=== PATIENT | female | born 1940 | race Caucasian/White ===

== ENCOUNTER → 2023-08-30 15:22 | Outpatient (REF) | payer MEDICARE, SELFPAY | LOC: RCS 15:22 | PROVIDERS: ATTENDING PHYSICIAN Internal Medicine Cardiovascular Disease; FAMILY PHYSICIAN Family Medicine | DX: Z95.3 Presence of xenogenic heart valve (principal); I25.10 Atherosclerotic heart disease of native coronary artery without angina pectoris; R06.02 Shortness of breath; Z95.1 Presence of aortocoronary bypass graft; I50.1 Left ventricular failure, unspecified | CPT/HCPCS: 93306 ==

== ENCOUNTER 2023-10-03 14:00 | Emergency (ER) | payer MEDICARE, SELFPAY ==
[2023-10-03 14:09] VITALS: BP 106/75
--- NOTE | 2023-10-03 16:54 | ED.MUSCINJ ---
HPI-Injury
General
Chief Complaint: Fall
Source: patient
Exam Limitations: none
Time Seen by Provider: 10/03/23 16:36
Travel History
Have you had any contact with someone who has COVID-19?: No
Do you have any symptoms of coronavirus? Fever > 100 degrees, chills, cough, shortness of breath, sore throat, loss of taste or smell, muscle aches, or headache?: No
History of Present Illness-Injury
Initial Injury comments:
83-year-old female presents 3 days after a fall. She tripped and landed on her printer. She complains of right side and rib pain. She denies shortness of breath. No cough or hemoptysis. No hematuria. She is not anticoagulated. No other
complaints at this time
Past History
Past History
ED Past Medical History: CAD, HTN, Hypercholesterolemia, Valvular disease and Other (Osteoarthritis, osteoporosis, scoliosis)
ED Past Surgical History: None, Cardiac (Cardiac valve replacement), Orthopedic (Left shoulder joint replacement right shoulder joint replacement, right knee replacement) and Other (Melanoma, hiatal hernia repair)
Social History
Tobacco: Non-smoker
Alcohol: None
Drug: None
Living: with family
Phy Exam
Physical Exam
Physical Exam:
General: Well-appearing female in no acute respiratory distress
HEENT: Normocephalic atraumatic
Heart: Regular rate and rhythm no murmur
Lungs: Clear no wheeze or rales breath sounds heard throughout
Abdomen is soft no swelling nontender. No guarding
Musculoskeletal exam: The right lateral inferior ribs are tender to palpation no step-off or deformity
Extremities: No cyanosis
Injury Course
Orders/Labs/Results
Orders:
Orders
10/03/23 14:10
Ribs, Right 3 View W/PA Chest [CR Ribs-right 3 Vw W/pa Chest*] Urgent
Comment:
Reason For Exam: pain
MDM/Problems Addressed
Differential Diagnosis Includes:
Right lateral rib pain after fall consider rib fracture chest wall contusion versus
I personally visualized x-rays of the right ribs which demonstrate fractures of the eighth ninth and 10th ribs without associated pneumothorax. Patient overall looks comfortable she has been functional for the past several days following her
injury. No indication for admission. Will prescribe pain medications for her.
*Critical Care Note
Total Time (30-74mins, 75-104mins- exclusive of procedures): Not Applicable
ED Attending Note
-
Portions of this chart may have been created with voice recognition software.� Occasional wrong word or��sound alike� substitutions may have occurred due to the inherent limitations of voice recognition software.
Discharge Plan
Departure
Patient Disposition: Home (Routine Discharge)
Date of Disposition: 10/03/23
Time of Disposition: 17:02
Patient with high blood pressure during this ER visit?: No
Discharge Problem:
Fracture of rib
Instructions: Rib Fracture
Prescriptions:
New
oxycodone-acetaminophen [Percocet] 5-325 mg tablet
1 tab PO Q6HPRN PRN (Reason: pain) Qty: 10 0RF
No Action
sertraline 100 MG tablet
150 mg PO DAILY
valsartan 80 MG tablet
80 mg PO DAILY
aspirin 81 MG tablet,delayed release (DR/EC)
81 mg PO QPM
meloxicam 7.5 MG tablet
7.5 mg PO DAILY
calcium carbonate 600 MG tablet
500 mg PO QPM
famotidine 20 MG tablet
20 mg PO HS
oxycodone-acetaminophen [Percocet] 1 EACH tablet
1 ea PO Q6HPRN PRN (Reason: moderate pain)
omeprazole 20 MG capsule,delayed release(DR/EC)
20 mg PO BID
fluocinonide 20 ML solution
6 drops topical BIDPRN PRN (Reason: head rash)
rosuvastatin 10 MG tablet
10 mg PO QPM
cholecalciferol (vitamin D3) 1,000 UNITS tablet
1,000 units PO QPM
multivitamin with folic acid [Tab-A-Valentín] 1 TABLET tablet
1 tab PO QPM
polyvinyl alcohol-povidon(PF) [Refresh Classic (PF)] 10 DROPS dropperette
1 drops BOTH EYES DAILYPRN PRN (Reason: computer use)
NAD, reduced, disodium (bulk) [Nicotinamide Burak.Dinuc.RedNA2] 1 GM powder
500 mg PO DAILY
Fiber 6 Tablet Tab
5,000 mg PO DAILY
Activity Restrictions/Additional Instructions:
Use medicine as needed for severe pain. Please return here for increased shortness of breath or fever. Follow-up with Dr. Mena
Interventions
Interventions:
*Risk Screen - Suicide Last Done: 10/03/23 14:09
*General Assessment Last Done: 10/03/23 14:09
*Neglect/Abuse Screening Last Done: 10/03/23 14:09
ED- Fall Risk Assessment Last Done: 10/03/23 16:15
*ED COVID-19 Vaccine History Last Done: 10/03/23 14:09
*Nursing Disposition Last Done: 10/03/23 17:25
ED-Musculoskeletal Assessment Last Done: 10/03/23 16:27
ED- Neurological Assessment Last Done: 10/03/23 16:27
ED-Skin Assessment Last Done: 10/03/23 16:27
Discharge Date and Time
Discharge Date/Time: 10/03/23 17:26
Print Language: SLOVENIAN
== END 2023-10-03 17:26 | disposition home or self-care (01) ==
LOC: EMR 14:00
PROVIDERS: EMERGENCY PHYSICIAN Student in an Organized Health Care Education/Training Program; FAMILY PHYSICIAN Family Medicine
DX: S22.31XA Fracture of one rib, right side, initial encounter for closed fracture (principal); W01.198A Fall on same level from slipping, tripping and stumbling with subsequent striking against other object, initial encounter; I10 Essential (primary) hypertension; I25.10 Atherosclerotic heart disease of native coronary artery without angina pectoris; E78.00 Pure hypercholesterolemia, unspecified; M19.90 Unspecified osteoarthritis, unspecified site; M81.0 Age-related osteoporosis without current pathological fracture; I38 Endocarditis, valve unspecified; Z96.612 Presence of left artificial shoulder joint; Z96.611 Presence of right artificial shoulder joint; Z96.651 Presence of right artificial knee joint; Z95.2 Presence of prosthetic heart valve; Z85.820 Personal history of malignant melanoma of skin; Z79.82 Long term (current) use of aspirin; Z91.040 Latex allergy status; Z91.048 Other nonmedicinal substance allergy status
CPT/HCPCS: 99283; 71101

== ENCOUNTER 2023-12-22 15:53 | Emergency (ER) | payer MEDICARE, SELFPAY ==
[2023-12-22 16:03] VITALS: BP 105/64
[2023-12-22 16:25] LABS: % Basophils 1.1 % (0-2); % Eosinophils 2.4 % (0-6); % Immature Granulocytes 0.2 % (0-0.5); % Lymphocytes 15.9 % (20.5-51.1); % Monocytes 4.8 % (1.7-9.3); % Neutrophils 75.6 % (42.2-75.2); Absolute Basophils 0.1 10^3/uL (0-0.2); Absolute Eosinophils 0.2 10^3/uL (0-0.7); Absolute Monocytes 0.3 10^3/uL (0.1-0.6); Absolute Neutrophils 4.7 10^3/uL (1.4-6.5); Hematocrit 33.2 % (37.0-47.0); Hemoglobin 10.6 g/dL (12.0-16.0); Mean Corp Hgb Conc. 31.9 g/dL (33.0-37.0); Mean Corpuscular Volume 84.7 fL (81.0-99.0); Mean Platelet Volume 9.4 fL (7.4-10.4); Nucleated Red Blood Cells % 0 %; Platelet Count 229 10^3/uL (130-400); Red Blood Cell Count 3.92 10^6/uL (4.20-5.40); White Blood Cell Count 6.2 10^3/uL (4.8-10.8)
[2023-12-22 16:39] LABS: ALT (SGPT) 13 U/L (0-35); AST (SGOT) 28 U/L (14-36); Alkaline Phosphatase 80 U/L (38-126); Blood Urea Nitrogen 20 mg/dl (7-17); Calcium 8.5 mg/dl (8.4-10.2); Carbon Dioxide 26 mmol/L (22-30); Chloride 106 mmol/L (98-107); Glucose 181 mg/dl (70-99); Potassium 3.1 mmol/L (3.5-5.1); Sodium 144 mmol/L (135-145); Total Bilirubin 0.5 mg/dl (0.2-1.3); Total Protein 7.4 g/dl (6.3-8.2); eGFR 55.55
--- NOTE | 2023-12-22 19:29 | ED.GENMED ---
History of Present Illness
General
Chief Complaint: Skin Problem
Source: patient
Exam Limitations: none
Time Seen by Provider: 12/22/23 18:27
History of Present Illness
History of Present Illness:
This is a 83 year old female that comes in with c/o wound on the right lower jaw. 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 States that a few days ago this area opened up and has opened up several times. States that she has cared for at
[facility] and she called them today. States that she was told to come to the ER for IV antibiotics. States that she was started on Augmentin BID. States that she has an appointment next week on Tuesday with her doctor there. States that
she does have occasional SOB. Denies any fever, chills, chest pain, abd pain, nausea, vomiting, diarrhea, headache, dizziness, urinary burning.
Past History
Past History
ED Past Medical History: CAD, Cancer (Skin Cancer, Christine Cell skin cancer, Melanoma, ), CHF, GERD, HTN, Hypercholesterolemia, Valvular disease, Psychiatric (Anxiety, Depressioin. ) and Other (Osteoarthritis, osteoporosis, scoliosis, Colitis, Hiatal
hernia, )
ED Past Surgical History: None, Cardiac (Cardiac valve replacement Bovine, CABG single), Orthopedic (Left shoulder joint replacement right shoulder joint replacement, right knee replacement, Left second toe amputation), Tonsilectomy (and adenoids)
and Other (Melanoma, hiatal hernia repair, Cataracts, )
Social History
Tobacco: Former smoker
Alcohol: None
Drug: None
Personal:
Living: alone
Review of Systems
Review of Systems
All Other Systems: ROS reviewed and negative except as documented in HPI and ROS
Constitutional: Reports no symptoms; Denies fever or chills
EENT: Reports no symptoms
Respiratory: Reports trouble breathing (occasionl)
Cardiac: Reports no symptoms; Denies chest pain
ABD/GI: Reports no symptoms; Denies abdominal pain, nausea, vomiting or diarrhea
: Reports no symptoms; Denies dysuria, frequency or urgency
Musculoskeletal: Reports no symptoms
Skin: Reports other (right lower jaw wound)
Neurological: Reports no symptoms; Denies dizzy or headache
Psychiatric: Reports no symptoms
Phy Exam
General Physical Exam
General Presentation: well appearing and no apparent distress
General age: appears stated age
General Skin: warm and dry
General Habitus: elderly
General Mental: alert
General Hydration: appears well hydrated
ENT Exam
ENT Exam: TM's normal, pharynx normal, neck supple and other (Negative for any redness of the right lower jaw. Small open area noted behind molar)
Eye Exam
Eye Exam: EOMI
Cardiovascular Exam
Cardiovascular Exam: regular rate/rhythm, no edema, normal peripheral pulses and other (Murmur)
Pulmonary Exam
Pulmonary Exam: lungs clear, no respiratory distress, no rales, chest non tender, no crackles, no rhonchi, no wheezing and no cough
Gastrointestinal Exam
Gastrointestinal Exam: normal bowel sounds, non tender, soft, no organomegaly, no pulsatile mass and non distended
Musculoskeletal Exam
Musculoskeletal Exam: full ROM and no edema
Skin Exam
Skin Exam: normal color, warm/dry, no petechia and other (Quarter size scabbed area noted on the right lower mid jaw line. Negative for any redness or drainage. )
Psychiatric Exam
Psychiatric Exam: normal mood/affect
Course
Orders/Labs/Results
Orders:
Orders
12/22/23 16:15
CMP [Comprehensive Metabolic Panel] Urgent
Complete Blood Count/With Diff Urgent
Abnormal Lab Results
12/22/23
16:15
RBC 3.92 L 10^6/uL
(4.20-5.40)
Hgb 10.6 L g/dL
(12.0-16.0)
Hct 33.2 L %
(37.0-47.0)
MCHC 31.9 L g/dL
(33.0-37.0)
RDW 15.0 H %
(11.5-14.5)
Absolute Lymphs (auto) 1.0 L 10^3/uL
(1.2-3.4)
Neutrophils % 75.6 H %
(42.2-75.2)
Lymphocytes % 15.9 L %
(20.5-51.1)
Potassium 3.1 L mmol/L
(3.5-5.1)
BUN 20 H mg/dl
(7-17)
Glucose 181 H mg/dl
(70-99)
12/22/23 16:15
12/22/23 16:15
H/H slightly low consistent with prior labs, Hypokalemia, Dehydration. Glucose nonfasting.
Vital Signs
Initial and Last Documented VS:
Initial Vital Signs
Temp Pulse Resp BP Pulse Ox
98.5 F 71 18 105/64 97
12/22/23 16:03 12/22/23 16:03 12/22/23 16:03 12/22/23 16:03 12/22/23 16:03
Last Documented Vital Signs
Temp Pulse Resp BP Pulse Ox
98.5 F 72 18 105/64 94
12/22/23 16:03 12/22/23 19:32 12/22/23 19:32 12/22/23 16:03 12/22/23 19:32
MDM/Problems Addressed
Differential Diagnosis Includes:
Osteoradial necrosis of jaw,
MDM/Problems Addressed:
This is a 83 year old female that comes in with c/o wound on the right lower jaw. States that she has Right jaw Osteoradial necrosis. States that a few days ago this opened up and has opened several times. States that she is cared for at [facility] and today when she called she was told to come to the ER for IV antibiotics. Patient had already been started on Augmentin BID this week.
Labs drawn and explained to patient that just getting one dose of IV antibiotics in the ER is not the preferred treatment. Called and spoke with Dr. Putnam at [facility]. She is also in agreement that giving her one dose of antibiotic will not
help. Patient has a normal WBC coung and she is fine letting the patient go home as patient has refused to stay in the hospital as she has dogs at home. Patient states that she has an appointment with her doctor at [facility] on Tuesday next
week. Patient to continue with the antibiotics and return with any concerns.
Chronic conditions affecting care:
Osteoradial necrosis of jaw,
Acute Exacerbation and/or Progression of Chronic Illness:
Osteoradial necrosis of jaw,
*Pulse Oximetry
Patient hypoxic: no
*EKG
Interpreted by ED Provider?: NA
Rate: EKG- N/A
*Senior Pricing Analyst Interpretation
Rate: Senior Pricing Analyst- N/A
*Critical Care Note
Total Time (30-74mins, 75-104mins- exclusive of procedures): Not Applicable
ED Attending Note
-
Portions of this chart may have been created with voice recognition software.� Occasional wrong word or��sound alike� substitutions may have occurred due to the inherent limitations of voice recognition software.
Discharge Plan
Departure
Patient Disposition: Home (Routine Discharge)
Date of Disposition: 12/22/23
Time of Disposition: 19:41
Patient with high blood pressure during this ER visit?: No
Condition: Good
Covid-19: Not Applicable
Discharge Problem:
Right jaw osteoradial necrosis, Scabbed wound
Instructions: Wound Care (DC)
Prescriptions:
No Action
sertraline 100 MG tablet
150 mg PO DAILY
valsartan 80 MG tablet
80 mg PO DAILY
aspirin 81 MG tablet,delayed release (DR/EC)
81 mg PO QPM
meloxicam 7.5 MG tablet
7.5 mg PO DAILY
calcium carbonate 600 MG tablet
500 mg PO QPM
famotidine 20 MG tablet
20 mg PO HS
oxycodone-acetaminophen [Percocet] 1 EACH tablet
1 ea PO Q6HPRN PRN (Reason: moderate pain)
omeprazole 20 MG capsule,delayed release(DR/EC)
20 mg PO BID
fluocinonide 20 ML solution
6 drops topical BIDPRN PRN (Reason: head rash)
rosuvastatin 10 MG tablet
10 mg PO QPM
cholecalciferol (vitamin D3) 1,000 UNITS tablet
1,000 units PO QPM
multivitamin with folic acid [Tab-A-Valentín] 1 TABLET tablet
1 tab PO QPM
polyvinyl alcohol-povidon(PF) [Refresh Classic (PF)] 10 DROPS dropperette
1 drops BOTH EYES DAILYPRN PRN (Reason: computer use)
NAD, reduced, disodium (bulk) [Nicotinamide Burak.Dinuc.RedNA2] 1 GM powder
500 mg PO DAILY
Fiber 6 Tablet Tab
5,000 mg PO DAILY
oxycodone-acetaminophen [Percocet] 5-325 mg tablet
1 tab PO Q6HPRN PRN (Reason: pain) Qty: 10 0RF
Referrals:
Bhumika Desai, DO [Family Provider] - As needed
Activity Restrictions/Additional Instructions:
As discussed your white blood cell count is normal. You have already been started on antibiotics. Please take these as directed. Follow up with your doctor Next week as scheduled. Tylenol for any discomfort. IF YOU HAVE ANY OTHER CONCERNS PLEASE
RETURN TO THE EMERGENCY ROOM.
Interventions
Interventions:
*Risk Screen - Suicide Last Done: 12/22/23 16:03
*General Assessment Last Done: 12/22/23 16:03
*Neglect/Abuse Screening Last Done: 12/22/23 16:03
*Nursing Disposition Last Done: 12/22/23 19:50
ED-Skin Assessment Last Done: 12/22/23 19:32
Discharge Date and Time
Discharge Date/Time: 12/22/23 19:50
Print Language: EAST TIMORESE
== END 2023-12-22 19:50 | disposition home or self-care (01) ==
LOC: EMR 15:53
PROVIDERS: Emergency Medicine; EMERGENCY PHYSICIAN Student in an Organized Health Care Education/Training Program; FAMILY PHYSICIAN Family Medicine
DX: M27.2 Inflammatory conditions of jaws (principal); S01.80XA Unspecified open wound of other part of head, initial encounter; R06.02 Shortness of breath; X58.XXXA Exposure to other specified factors, initial encounter; I11.0 Hypertensive heart disease with heart failure; I50.9 Heart failure, unspecified; I25.10 Atherosclerotic heart disease of native coronary artery without angina pectoris; F41.9 Anxiety disorder, unspecified; K21.9 Gastro-esophageal reflux disease without esophagitis; E78.00 Pure hypercholesterolemia, unspecified; M19.90 Unspecified osteoarthritis, unspecified site; M81.0 Age-related osteoporosis without current pathological fracture; M41.9 Scoliosis, unspecified; K52.9 Noninfective gastroenteritis and colitis, unspecified; Z95.1 Presence of aortocoronary bypass graft; Z95.2 Presence of prosthetic heart valve; Z96.651 Presence of right artificial knee joint; Z85.820 Personal history of malignant melanoma of skin; Z87.891 Personal history of nicotine dependence
CPT/HCPCS: 99283; 80053; 85025

== ENCOUNTER 2024-04-16 14:51 | Emergency (ER) | payer MEDICARE, SELFPAY ==
--- NOTE | 2024-04-16 14:53 | ED.GENMED ---
ED Provider Triage
-
Patient seen by provider in Triage?: Seen in Triage
Attestation: A medical screening examination has been initiated by a qualified medical provider. Based on the assessment performed at this time, it has been determined that an emergent medical condition may exist and the patient has been informed
that further medical evaluation and possible additional diagnostic testing may be needed.
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 Had lymph node/jaw radiation. Postradiation developed 2 fistulas on the
left side on on the right side oncologist sent her here requesting culture of the fistula so she can put her on the right antibiotic
GENERAL: Alert , in no apparent distress
EYE: No visual abnormalities.
NECK: Trachea midline
ENT: No visible abnormalities.
LUNGS: No acute respiratory distress
NEUROLOGICAL: Alert and oriented
SKIN: Skin intact. No visible changes.
MUSCULOSKELETAL: Moving extremities normally
PSYCH: Normal and appropriate interaction.
This is a medical evaluation conducted in person to initiate diagnostic evaluation and provide initial therapeutics. Please see further documentation by the treating clinician.
History of Present Illness
General
Chief Complaint: Wound Check/Suture Removal
Source: patient
Exam Limitations: none
Time Seen by Provider: 04/16/24 16:32
Nursing documentation reviewed up to this point in time: agreed with
History of Present Illness
History of Present Illness:
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 Had lymph node/jaw radiation. Postradiation developed 2 'fistulas' on the
right jaw line. Pt states she had a video call with her ID doctor in [facility] Dr. Taylor 2 days ago and sent her here requesting culture of the 'fistula' so she can put her on the right antibiotic. Pt states the area drained 'some pus' 2 days
ago.
Denies fever or chills
Past History
Past History
ED Past Medical History: CAD, Cancer (Skin Cancer, [place] Cell skin cancer, Melanoma, ), CHF, GERD, HTN, Hypercholesterolemia, Valvular disease, Psychiatric (Anxiety, Depressioin. ) and Other (Osteoarthritis, osteoporosis, scoliosis, Colitis, Hiatal
hernia, )
ED Past Surgical History: None, Cardiac (Cardiac valve replacement Bovine, CABG single), Orthopedic (Left shoulder joint replacement right shoulder joint replacement, right knee replacement, Left second toe amputation), Tonsilectomy (and adenoids)
and Other (Melanoma, hiatal hernia repair, Cataracts, )
Social History
Tobacco: Former smoker
Alcohol: None
Drug: None
Personal:
Living: alone
Review of Systems
Review of Systems
Allergies reviewed?: Yes
All Other Systems: ROS reviewed and negative except as documented in HPI and ROS
Constitutional: Denies fever or chills
Skin: Reports other (sore on right jaw)
Phy Exam
Physical Exam
Physical Exam:
PHYSICAL EXAMINATION:
General: no apparent distress, not acutely ill
Neuro: alert and oriented.
Psychiatric: well kept. interactive and cooperative
Musculoskeletal: Moves with ease
Skin: Warm, pink. There is a 5 mm round scab on right mid jawline. Dry, no drainage, no fluctuance, surrounding skin is normal.
Course
Vital Signs
Initial and Last Documented VS:
Initial Vital Signs
Temp Pulse Resp BP Pulse Ox
98.2 F 77 20 143/97 99
04/16/24 14:56 04/16/24 14:56 04/16/24 14:56 04/16/24 14:56 04/16/24 14:56
Last Documented Vital Signs
Temp Pulse Resp BP Pulse Ox
98.2 F 96 18 156/84 98
04/16/24 17:23 04/16/24 17:23 04/16/24 17:23 04/16/24 17:23 04/16/24 17:23
MDM/Problems Addressed
MDM/Problems Addressed:
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 Had lymph node/jaw radiation. Postradiation developed 2 'fistulas' on the
right jaw line. Pt states she had a video call with her ID doctor in [facility] Dr. Taylor 2 days ago and sent her here requesting culture of the 'fistula' so she can put her on the right antibiotic. Pt states the area drained 'some pus' 2 days
ago.
Denies fever or chills
4:30 PM:
Spoke with infectious disease Dr. Taylor's RN Jeff who agrees that the wound does not need to be cultured since it is dry and scabbed over.
He himself spoke with patient on the phone.
After patient left, ID called, case discussed, she requested names and numbers for our ID doctors, I gave her all Dr. Pires, Brown and Romario. She will call pt tomorrow and suggest she get ID doctor in this area.
*Critical Care Note
Total Time (30-74mins, 75-104mins- exclusive of procedures): Not Applicable
ED Attending Note
-
Portions of this chart may have been created with voice recognition software.� Occasional wrong word or��sound alike� substitutions may have occurred due to the inherent limitations of voice recognition software.
Discharge Plan
Departure
Patient Disposition: Home (Routine Discharge)
Date of Disposition: 04/16/24
Time of Disposition: 16:35
Patient with high blood pressure during this ER visit?: No
Condition: Good
Discharge Problem:
Facial abrasion
Instructions: Wound Care (DC), Stitches and rene
Prescriptions:
No Action
sertraline 100 MG tablet
150 mg PO DAILY
valsartan 80 MG tablet
80 mg PO DAILY
aspirin 81 MG tablet,delayed release (DR/EC)
81 mg PO QPM
meloxicam 7.5 MG tablet
7.5 mg PO DAILY
calcium carbonate 600 MG tablet
500 mg PO QPM
famotidine 20 MG tablet
20 mg PO HS
oxycodone-acetaminophen [Percocet] 1 EACH tablet
1 ea PO Q6HPRN PRN (Reason: moderate pain)
omeprazole 20 MG capsule,delayed release(DR/EC)
20 mg PO BID
fluocinonide 20 ML solution
6 drops topical BIDPRN PRN (Reason: head rash)
rosuvastatin 10 MG tablet
10 mg PO QPM
cholecalciferol (vitamin D3) 1,000 UNITS tablet
1,000 units PO QPM
multivitamin with folic acid [Tab-A-Valentín] 1 TABLET tablet
1 tab PO QPM
polyvinyl alcohol-povidon(PF) [Refresh Classic (PF)] 10 DROPS dropperette
1 drops BOTH EYES DAILYPRN PRN (Reason: computer use)
NAD, reduced, disodium (bulk) [Nicotinamide Burak.Dinuc.RedNA2] 1 GM powder
500 mg PO DAILY
Fiber 6 Tablet Tab
5,000 mg PO DAILY
oxycodone-acetaminophen [Percocet] 5-325 mg tablet
1 tab PO Q6HPRN PRN (Reason: pain) Qty: 10 0RF
Activity Restrictions/Additional Instructions:
As we discussed, the affected area on your face hat opened and drained some pus is now dry and nothing to culture.
There is no abscess, no sign of infection
Nothing to do at this point.
Interventions
Interventions:
*Risk Screen - Suicide Last Done: 04/16/24 16:40
*General Assessment Last Done: 04/16/24 14:56
*Neglect/Abuse Screening Last Done: 04/16/24 16:40
ED- Fall Risk Assessment Last Done: 04/16/24 16:40
*ED COVID-19 Vaccine History Last Done: 04/16/24 16:40
*Nursing Disposition Last Done: 04/16/24 17:23
ED-Skin Assessment Last Done: 04/16/24 16:40
Discharge Date and Time
Discharge Date/Time: 04/16/24 17:20
Print Language: BURUNDIAN
[2024-04-16 14:56] VITALS: BP 143/97
--- NOTE | 2024-04-16 17:20 | EDRN ---
Reviewed discharge instructions with patient. Verbalized understanding. Ambulated with steady gait to the lobby.
[2024-04-16 17:23] VITALS: BP 156/84
== END 2024-04-16 17:20 | disposition home or self-care (01) ==
LOC: EMR 14:51
PROVIDERS: EMERGENCY PHYSICIAN Emergency Medicine; FAMILY PHYSICIAN Family Medicine
DX: S00.81XA Abrasion of other part of head, initial encounter (principal); X58.XXXA Exposure to other specified factors, initial encounter; Z87.891 Personal history of nicotine dependence; Z85.821 Personal history of Merkel cell carcinoma
CPT/HCPCS: 99283

== ENCOUNTER → 2024-05-15 10:38 | Outpatient (REF) | payer MEDICARE, SELFPAY | LOC: RAD 10:38 | PROVIDERS: ATTENDING PHYSICIAN Dermatology; FAMILY PHYSICIAN Family Medicine | DX: D48.5 Neoplasm of uncertain behavior of skin (principal) | CPT/HCPCS: 70110 ==

== ENCOUNTER → 2024-05-16 16:16 | Outpatient (REF) | payer MEDICARE, SELFPAY ==
[2024-05-16 18:18] LABS: ALT (SGPT) 13 U/L (0-35); AST (SGOT) 23 U/L (14-36); Albumin 4.1 g/dl (3.5-5.0); Alkaline Phosphatase 101 U/L (38-126); Blood Urea Nitrogen 32 mg/dl (7-17); Calcium 9.3 mg/dl (8.4-10.2); Carbon Dioxide 21 mmol/L (22-30); Chloride 105 mmol/L (98-107); Glucose 102 mg/dl (70-99); Potassium 3.6 mmol/L (3.5-5.1); Sodium 137 mmol/L (135-145); Total Bilirubin 0.4 mg/dl (0.2-1.3); Total Protein 7.7 g/dl (6.3-8.2); eGFR 44.64
== END ==
LOC: REG 16:16
PROVIDERS: ATTENDING PHYSICIAN Dermatology; FAMILY PHYSICIAN Family Medicine
DX: D48.5 Neoplasm of uncertain behavior of skin (principal)
CPT/HCPCS: 36415; 80053

== ENCOUNTER → 2024-05-17 16:11 | Outpatient (REF) | payer MEDICARE, SELFPAY | LOC: RAD 16:11 | PROVIDERS: ATTENDING PHYSICIAN Dermatology; FAMILY PHYSICIAN Family Medicine | DX: D48.5 Neoplasm of uncertain behavior of skin (principal) | CPT/HCPCS: 70487; Q9967 ==

== ENCOUNTER → 2024-05-23 13:31 | Outpatient (REF) | payer MEDICARE, SELFPAY | LOC: RAD 13:31 | PROVIDERS: ATTENDING PHYSICIAN Physician Assistant | DX: M81.0 Age-related osteoporosis without current pathological fracture (principal) | CPT/HCPCS: 77080 ==